=== PATIENT | female | born 1950 | race African-American/Black ===

== ENCOUNTER 2020-09-20 10:04 | Inpatient (IN) | payer OTHER, BC ==
[2020-09-20 10:54] LABS: Absolute Lymphocytes (CBC) 3.5 K/uL (0.7-4.9); Basophils % 1.3 % (0-1.3); Hematocrit 42.9 % (36.0-45.0); Lymphocytes % 41.6 % (15.3-44.8); MPV 7.5 fL (7.6-11.3); RBC Red Blood Cell Count 4.89 M/uL (3.86-4.86)
--- NOTE | 2020-09-20 11:07 | RAD REPORT ---
EXAM DESCRIPTION: RAD - Chest Single View - 09/20/2020 10:33 am CLINICAL HISTORY: CHEST PAIN COMPARISON: None TECHNIQUE: AP portable chest image was obtained 09/20/2020 10:33 am . FINDINGS: Lungs are clear. Heart and vasculature are normal. No measurable pleural effusion and no p neumothorax. No acute bony abnormality seen. No acute aortic findings suspected. IMPRESSION: No acute cardiopulmonary process.
[2020-09-20 11:10] LABS: Protime INR 1.09
[2020-09-20 11:36] LABS: ALT/SGPT 22 U/L (12-78); AST/SGOT 16 U/L (15-37); Albumin 3.7 g/dL (3.4-5.0); Alkaline Phosphatase 72 U/L (45-117); BUN Blood Urea Nitrogen 13 mg/dL (7-18); Bicarbonate 26 mmol/L (21-32); Bilirubin Direct < 0.1 mg/dL (0-0.2); Bilirubin Total 0.3 mg/dL (0.2-1.0); Glucose Level 108 mg/dL (74-106); Magnesium 2.3 mg/dL (1.8-2.4); NT PRO-BNP 137 pg/mL (<125); Potassium 3.4 mmol/L (3.5-5.1); Protein, Total 8.1 g/dL (6.4-8.2); Sodium Level 140 mmol/L (136-145); Troponin (Emerg Dept Use Only) < 0.02 ng/mL (0.0-0.045)
[2020-09-20 11:36] LABS: Urine Blood Trace-lysed (Negative); Urine Glucose Negative (Negative); Urine Protein Negative (Negative); Urine Specific Gravity 1.015 (1.005-1.030); Urine pH 5.5 (5.0-7.0)
--- NOTE | 2020-09-20 12:07 | ER ---
Nurse's Notes [facility] Name: Janell Gongora Age: 69 yrs Sex: Female : 1950 Arrival Date: 09/20/2020 Time: 10:08 Bed 17 Private MD: Diagnosis: Chest pain, unspecified Presentation: 09/20 10:24 Chief complaint: Patient states: Chest pain radiating to L shoulder, neck and back x 2 ca1 days. CP worse last night and hurts to breathe. Reports feeling lightheaded. Denies cough. Coronavirus screen: Client denies travel out of the [place] in the last 14 days. At this time, the client does not indicate any symptoms associated with coronavirus-19. Ebola Screen: Patient negative for fever greater than or equal to 101.5 degrees Fahrenheit, and additional compatible Ebola Virus Disease symptoms Patient denies exposure to infectious person. Patient denies travel to an Ebola-affected area in the 21 days before illness onset. No symptoms or risks identified at this time. Initial Sepsis Screen: Does the patient meet any 2 criteria? No. Patient's initial sepsis screen is negative. Does the patient have a suspected source of infection? No. Patient's initial sepsis screen is negative. Risk Assessment: Do you want to hurt yourself or someone else? Patient reports no desire to harm self or others. Onset of symptoms was September 20, 2020. 10:24 Acuity: SELAM 2 ca1 10:24 Method Of Arrival: Wheelchair ca1 Triage Assessment: 11:22 General: Appears in no apparent distress. Behavior is cooperative, appropriate for age, kg anxious, quiet. Pain: Complains of pain in chest Pain radiates to scalp and back Pain currently is 9 out of 10 on a pain scale. at worst was 10 out of 10 on a pain scale. level that patient reports is acceptable is 2 out of 10 on a pain scale. Quality of pain is described as aching, sharp. EENT: No deficits noted. Neuro: No deficits noted. Cardiovascular: Reports chest pain, Heart tones S1 S2 Capillary refill < 3 seconds Pulses are 3+ in right radial artery and left radial artery Rhythm is regular Chest pain is denied. Respiratory: No deficits noted. Breath sounds are clear bilaterally. GI: No deficits noted. : No deficits noted. Derm: No deficits noted. Musculoskeletal: No deficits noted. Historical: - Allergies: 10:26 No Known Allergies; ca1 - Home Meds: 10:26 losartan oral [Active]; sertraline oral [Active]; ca1 - PMHx: 10:26 Hypertensive disorder; Dementia; ca1 - Immunization history:: Adult Immunizations not up to date, Client reports having NOT received the Covid vaccine. Pneumococcal vaccine is not up to date, Flu vaccine is not up to date. - Social history:: Smoking status: Patient denies any tobacco usage or history of. Screenin:22 Abuse screen: Denies threats or abuse. Denies injuries from another. Nutritional kg screening: No deficits noted. Tuberculosis screening: No symptoms or risk factors identified. Fall Risk No fall in past 12 months (0 pts). No secondary diagnosis (0 pts). IV access (20 points). Ambulatory Aid- None/Bed Rest/Nurse Assist (0 pts). Gait- Weak (10 pts.). Mental Status- Overestimates/Forgets Limitations (15 pts.). Total Fenton Fall Scale indicates Low Risk Score (25-44 pts). Fall prevention measures have been instituted. Side Rails Up X 2 Placed close to Nursing Station Frequent Obs/Assesments occuring Family Present and informed to notify staff if they need to leave bedside As available Patient and Family Educated on Fall Prevention Program and strategies. Assessment: 11:24 Pain: Pain began 2-3 days ago. kg Vital Signs: 10:13 BP 167 / 85; Pulse 68; Resp 20; Pulse Ox 100% on R/A; kg 10:24 BP 133 / 107; Pulse 65; Resp 18 S; Temp 97.1(TE); Pulse Ox 100% on R/A; Weight 49.9 kg ca1 (R); Height 5 ft. 3 in. (160.02 cm) (R); Pain 9/10; 10:30 BP 143 / 67; Pulse 55; Resp 20; Pulse Ox 100% on R/A; kg 10:45 BP 146 / 63; Pulse 55; Resp 20; Pulse Ox 100% on R/A; kg 14:00 BP 125 / 58; Pulse 58; Resp 20; Pulse Ox 100% on R/A; kg 15:30 BP 116 / 55; Pulse 61; Resp 20; Pulse Ox 100% ; kg 16:30 BP 118 / 99; Pulse 61; Resp 18; Pulse Ox 100% ; kg 17:30 BP 145 / 56; Pulse 100; Resp 18; Pulse Ox 99% on R/A; kg 18:30 BP 138 / 54; Pulse 69; Resp 20; Pulse Ox 98% on R/A; kg 10:24 Body Mass Index 19.49 (49.90 kg, 160.02 cm) ca1 ED Course: 10:07 Inserted saline lock: 22 gauge in right antecubital area, using aseptic technique. kg 10:08 Patient arrived in ED. mr 10:15 Katia Parrish FNP-C is PHCP. kb 10:15 Gilbert Heath MD is Attending Physician. kb 10:16 Patient has correct armband on for positive identification. Placed in gown. Bed in low mh5 position. Call light in reach. Side rails up X 1. Adult w/ patient. Warm blanket given. set up mechanic on. Pulse ox on. NIBP on. 10:17 Initial lab(s) drawn, by ED staff, sent to lab. EKG done, by ED staff, reviewed by Roberto BARRETT. 10:26 Triage completed. ca1 10:26 Arm band placed on. EKG completed in triage. Results shown to MD. ca1 10:33 XRAY Chest (1 view) In Process Unspecified. EDMS 11:21 Vivienne Quinteros, RN is Primary Nurse. kg 11:24 Patient maintains SpO2 saturation greater than 95% on room air. kg 12:06 Lexi Ledesma MD is Hospitalizing Provider. kb 19:33 Report given to Eli ESCOBAR. kg 19:34 No provider procedures requiring assistance completed. Converted IV to saline lock on kg right antecubital area. Administered Medications: 12:49 Drug: Aspirin Chewable Tablet 324 mg Route: PO; kg 19:37 Follow up: Response: No adverse reaction kg Outcome: 12:07 Decision to Hospitalize by Provider. kb 19:34 Admitted to Med/surg accompanied by tech, via wheelchair, room 231, Report called to jhon Benitez RN 19:34 Condition: good 19:34 Instructed on the need for admit. 20:10 Patient left the ED. kg Signatures: Dispatcher [employer] EDMS Katia Parrish FNP-C FNP-Liat Ric [facility] Kimberlee Chaney, RN RN ca1 Vivienne Quinteros, RN RN kg
--- NOTE | 2020-09-20 12:07 | EDPHYS ---
Physician Documentation [facility] Name: Janell Gongora Age: 69 yrs Sex: Female : 1950 Arrival Date: 09/20/2020 Time: 10:08 Bed 17 Private MD: CRISTHIAN Physician Gilbert Heath HPI: 09/20 12:08 This 69 yrs old Black Female presents to ER via Wheelchair with complaints of Chest kb Pain. 12:08 The patient or guardian reports chest pain that is located primarily in the anterior kb chest wall, left. Onset: yesterday. The pain radiates to the left shoulder, left back. Associated signs and symptoms: The patient has no apparent associated signs or symptoms. The chest pain is described as aching. Duration: The patient or guardian reports a single episode, that is still ongoing. Modifying factors: The symptoms are alleviated by nothing. the symptoms are aggravated by nothing. Severity of pain: At its worst the pain was mild in the emergency department the pain is unchanged. The patient has not experienced similar symptoms in the past. The patient has not recently seen a physician. Historical: - Allergies: 10:26 No Known Allergies; ca1 - Home Meds: 10:26 losartan oral [Active]; sertraline oral [Active]; ca1 - PMHx: 10:26 Hypertensive disorder; Dementia; ca1 - Immunization history:: Adult Immunizations not up to date, Client reports having NOT received the Covid vaccine. Pneumococcal vaccine is not up to date, Flu vaccine is not up to date. - Social history:: Smoking status: Patient denies any tobacco usage or history of. ROS: 12:07 Constitutional: Negative for fever, chills, and weight loss. kb 12:07 Cardiovascular: Positive for chest pain, Negative for edema, orthopnea, palpitations, paroxysmal nocturnal dyspnea. 12:07 All other systems are negative. Exam: 10:47 Constitutional: This is a well developed, well nourished patient who is awake, alert, kb and in no acute distress. Head/Face: Normocephalic, atraumatic. ENT: Moist Mucous membranes Cardiovascular: Regular rate and rhythm with a normal S1 and S2. No gallops, murmurs, or rubs. No pulse deficits. Respiratory: Respirations even and unlabored. No increased work of breathing, no retractions or nasal flaring. Abdomen/GI: Soft, non-tender. No distention Skin: Warm, dry with normal turgor. Normal color. MS/ Extremity: Pulses equal, no cyanosis. Neurovascular intact. Full, normal range of motion. Neuro: Awake and alert, GCS 15, oriented to person, place, time, and situation. Moves all extremities. Normal gait. Psych: Awake, alert, with orientation to person, place and time. Behavior, mood, and affect are within normal limits. 10:47 ECG was reviewed by the Attending Physician. Vital Signs: 10:13 BP 167 / 85; Pulse 68; Resp 20; Pulse Ox 100% on R/A; kg 10:24 BP 133 / 107; Pulse 65; Resp 18 S; Temp 97.1(TE); Pulse Ox 100% on R/A; Weight 49.9 kg ca1 (R); Height 5 ft. 3 in. (160.02 cm) (R); Pain 9/10; 10:30 BP 143 / 67; Pulse 55; Resp 20; Pulse Ox 100% on R/A; kg 10:45 BP 146 / 63; Pulse 55; Resp 20; Pulse Ox 100% on R/A; kg 14:00 BP 125 / 58; Pulse 58; Resp 20; Pulse Ox 100% on R/A; kg 15:30 BP 116 / 55; Pulse 61; Resp 20; Pulse Ox 100% ; kg 16:30 BP 118 / 99; Pulse 61; Resp 18; Pulse Ox 100% ; kg 17:30 BP 145 / 56; Pulse 100; Resp 18; Pulse Ox 99% on R/A; kg 18:30 BP 138 / 54; Pulse 69; Resp 20; Pulse Ox 98% on R/A; kg 10:24 Body Mass Index 19.49 (49.90 kg, 160.02 cm) ca1 MDM: 10:15 Patient medically screened. kb 12:03 Data reviewed: vital signs, nurses notes. Data interpreted: Pulse oximetry: on room air kb is 100 %. Interpretation: normal. Counseling: I had a detailed discussion with the patient and/or guardian regarding: the historical points, exam findings, and any diagnostic results supporting the discharge/admit diagnosis, lab results, radiology results, the need for further work-up and treatment in the hospital. 12:07 Physician consultation: Lexi Ledesma MD was contacted at 12:07, regarding admission, kb to the telemetry unit. patient's condition, and will see patient shortly. 09/20 10:15 Order name: Basic Metabolic Panel; Complete Time: 11:48 kb 09/20 10:15 Order name: CBC with Diff; Complete Time: 11:28 kb 09/20 10:15 Order name: LFT's; Complete Time: 11:48 kb 09/20 10:15 Order name: Magnesium; Complete Time: 11:48 kb 09/20 10:15 Order name: NT PRO-BNP; Complete Time: 11:48 kb 09/20 10:15 Order name: PT-INR; Complete Time: 11:30 kb 09/20 10:15 Order name: Troponin (emerg Dept Use Only); Complete Time: 11:48 kb 09/20 11:36 Order name: Urine Dipstick-Ancillary EDNY 09/20 14:48 Order name: Lipid Profile EDNY 09/20 14:48 Order name: Lipid Profile EDNY 09/20 14:48 Order name: Troponin I EDNY 09/20 14:48 Order name: Troponin I; Complete Time: 17:44 EDNY 09/20 14:48 Order name: Troponin I EDNY 09/20 10:15 Order name: XRAY Chest (1 view); Complete Time: 11:23 kb 09/20 10:15 Order name: EKG; Complete Time: 10:16 kb 09/20 10:15 Order name: Cardiac monitoring; Complete Time: 10:16 kb 09/20 10:15 Order name: EKG - Nurse/Tech; Complete Time: 10:16 kb 09/20 10:15 Order name: IV Saline Lock; Complete Time: 10:16 kb 09/20 10:15 Order name: Labs collected and sent; Complete Time: 11:27 kb 09/20 10:15 Order name: O2 Per Protocol; Complete Time: 11:27 kb 09/20 10:15 Order name: O2 Sat Monitoring; Complete Time: 11:27 kb 09/20 14:48 Order name: CONS Physician Consult EDNY 09/20 14:48 Order name: Echo with Doppler EDNY 09/20 14:48 Order name: Echo with Doppler EDNY 09/20 15:25 Order name: SARS-COV-2 RT PCR; Complete Time: 15:27 EDMS EC:47 Rate is 65 beats/min. Rhythm is regular. QRS [place] is Normal. NE interval is normal at kb 136 msec. QRS interval is normal at 120 msec. QT interval is normal at 478 msec. Administered Medications: 12:49 Drug: Aspirin Chewable Tablet 324 mg Route: PO; kg 19:37 Follow up: Response: No adverse reaction kg Disposition: 09/21 13:22 Co-signature as Attending Physician, Gilbert Heath MD I agree with the assessment and [facility] plan of care. Disposition Summary: 09/20/20 12:07 Hospitalization Ordered Hospitalization Status: Observation kb Provider: Lexi Ledesma Location: Telemetry/MedSurg (observation) kb Condition: Stable kb Problem: new kb Symptoms: are unchanged kb Bed/Room Type: Standard Room Assignment: 231(09/20/20 16:53) Diagnosis - Chest pain, unspecified kb Forms: - Medication Reconciliation Form kb - SBAR form kb Signatures: Dispatcher [employer] EDKatia Whitfield FNP-C FNP-Gilbert Dhillon MD MD cha Botello, Elizabeth eb Acob, Cheryl, RN RN [facility] Vivienne Quinteros RN RN kg Corrections: (The following items were deleted from the chart) 09/20 14:33 13:37 CORONAVIRUS+MR.LAB.BRZ ordered. EDNY EDNY 16:53 12:07 [facility]
[2020-09-20] MEDS ORDERED: ASPIRIN 81 MG CHEWABLE TABLET ONE (13:00)
[2020-09-20] MEDS ORDERED: ACETAMINOPHEN 500 MG TAB PO PRN (14:45)
[2020-09-20] MEDS ORDERED: MORPHINE 4 MG/ML SYR IV PRN (14:45)
[2020-09-20] MEDS ORDERED: ALPRAZOLAM 0.25 MG TABLET PO PRN (14:45)
[2020-09-20] MEDS ORDERED: METOPROLOL TAR 50 MG TAB PO SCH (18:00)
[2020-09-21 00:04] VITALS: BMI 21.4
--- NOTE | 2020-09-21 00:35 | P.HP ---
Certification for Inpatient Patient admitted to: Observation With expected LOS: <2 Midnights Patient will require the following post-hospital care: None Practitioner: I am a practitioner with admitting privileges, knowledge of patient current condition, hospital course, and medical plan of care. Services: Services provided to patient in accordance with Admission requirements found in Title 42 Section 412.3 of the Code of Federal Regulations Patient History Date of Service: 09/20/20 Reason for admission: Chest pain rule out acute coronary syndrome History of Present Illness: Patient is a 69-year-old female who came to the hospital with chest discomfort. Pain was mainly in the anterior region and 1 to the left shoulder and left back. Patient's pain is dull and not sharp. Patient is also a little lightheaded. She came to the emergency room for further evaluation. In the emergency room her EKGs and troponins have been negative. Patient has a history of dementia and her short-term memory is not that great. At this time, she will be admitted to the hospital for further evaluation. Allergies No Known Allergies Allergy (Verified 09/20/20 21:35) - Past Medical/Surgical History Diabetic: No -: HTN -: DEMENTIA Past Surgical History: Patient denies surgical history - Family History Father Family History: Reviewed- Non-Contributory - Social History Smoking Status: Never smoker Alcohol use: No CD- Drugs: No Caffeine use: Yes Place of Residence: Home Review of Systems 10-point ROS is otherwise unremarkable Physical Examination - Vital Signs Temperature: 97.5 F Blood Pressure: 113/62 Pulse: 63 Respirations: 18 Pulse Ox (%): 100 - Physical Exam General: Alert, In no apparent distress, Oriented x2, Demented HEENT: Atraumatic, PERRLA, Mucous membr. moist/pink, EOMI, Sclerae nonicteric Neck: Supple, 2+ carotid pulse no bruit, No LAD, Without JVD or thyroid abnormality Respiratory: Clear to auscultation bilaterally, Normal air movement Cardiovascular: Regular rate/rhythm, Normal S1 S2, Systolic murmur Gastrointestinal: Normal bowel sounds, Soft and benign, Non-distended, No tenderness Musculoskeletal: No clubbing, No swelling, No tenderness Integumentary: No rashes Neurological: Normal gait, Normal speech, Normal strength at 5/5 x4 extr, Normal tone, Sensation intact, Cranial nerves 3-12 intact, Normal affect Lymphatics: No axilla or inguinal lymphadenopathy - Studies Laboratory Data (last 24 hrs) 09/20/20 10:46: PT 12.5, INR 1.09 09/20/20 10:46: WBC 8.50, Hgb 14.6, Hct 42.9, Plt Count 419 H 09/20/20 10:46: Sodium 140, Potassium 3.4 L, BUN 13, Creatinine 0.91, Glucose 108 H, Magnesium 2.3, Total Bilirubin 0.3, AST 16, ALT 22, Alkaline Phosphatase 72 Assessment & Plan - Problems (Diagnosis) (1) Chest pain, rule out acute myocardial infarction Current Visit: Yes Status: Acute (2) History of hypertension Current Visit: Yes Status: Acute (3) History of dementia Current Visit: Yes Status: Acute - Plan 1. Serial troponins and EKG 2. Cardiology consultation 3. Echocardiogram and stress test will probably need to get done as an outpatient. 4. Anti-platelet therapy, anti coagulation, beta-heather, statin, and O2 as needed 5. IV morphine for pain 6. Nitro p.r.n. 7. Strict blood pressure control 8. GI and DVT prophylaxis Discharge Plan: Home Plan to discharge in: 24 Hours - Advance Directives Does patient have a Living Will: No Does patient have a Durable POA for Healthcare: No - Code Status/Comfort Care Code Status Assessed: Yes Code Status: Full Code Critical Care: No Time Spent Managing PTS Care (In Minutes): 45
--- NOTE | 2020-09-21 07:13 | P.DS ---
Admission Date: 09/20/20 Discharge Date: 09/21/20 Primary Care Provider: unknown Disposition: ROUTINE DISCHARGE Discharge Condition: GOOD Reason for Admission: Chest pain rule out acute coronary syndrome Consultations: Cardiology-Dr. Mcconnell Procedures: COVID: Negative CXR: COMPARISON: None TECHNIQUE: AP portable chest image was obtained 09/20/2020 10:33 am . FINDINGS: Lungs are clear. Heart and vasculature are normal. No measurable pleural effusion and no pneumothorax. No acute bony abnormality seen. No acute aortic findings suspected. IMPRESSION: No acute cardiopulmonary process. Medical Problem List: Chest pain, atypical Hypertension Dementia Brief History of Present Illness: 69-year-old -[place] female presented with chest pain. Pain was mainly in the anterior region and 1 to the left shoulder and left back. Patient's pain is dull and not sharp. Patient is also a little lightheaded. She came to the emergency room for further evaluation. In the emergency room her EKGs and troponins have been negative. Patient has a history of dementia and her short- term memory is not that great. Patient admitted for further evaluation and treatment. Hospital Course: Patient presented with chest pain. Patient with history of hypertension and dementia. EKG shows no significant EKG changes. Troponin unremarkable. Cardiology recommends outpatient cardiac stress test. At discharge patient may continue with aspirin 81 mg daily, metoprolol 25 mg 1 pill twice daily. Recommend to maintain blood pressure less than 130/80. Further adjustment may be required. This can be done with the help of her PCP. Recommend follow-up with cardiology in 1 to 2 weeks to follow-up hospitalization. Patient may have outpatient cardiac stress test and echocardiogram to further evaluate. No need for further intervention at this time. Vital Signs/Physical Exam: Temp Pulse Resp BP Pulse Ox 97.6 F 68 18 115/56 L 100 09/21/20 04:00 09/21/20 04:00 09/21/20 04:00 09/21/20 04:00 09/21/20 04:00 General: Alert, In no apparent distress, Oriented x3, Cooperative HEENT: Atraumatic Neck: Supple Respiratory: Clear to auscultation bilaterally, Normal air movement Cardiovascular: Normal pulses, Regular rate/rhythm Gastrointestinal: Normal bowel sounds, No tenderness, No masses, No rebound, No guarding Musculoskeletal: No erythema, No tenderness, No warmth Integumentary: No tenderness/swelling Neurological: Normal speech, Normal strength at 5/5 x4 extr, Normal tone, Normal affect Laboratory Data at Discharge: WBC 8.50 K/uL (4.3-10.9) 09/20/20 10:46 Hgb 14.6 g/dL (12.0-15.0) 09/20/20 10:46 Hct 42.9 % (36.0-45.0) 09/20/20 10:46 Plt Count 419 K/uL (152-406) H 09/20/20 10:46 PT 12.5 SECONDS (9.5-12.5) 09/20/20 10:46 INR 1.09 09/20/20 10:46 Sodium 140 mmol/L (136-145) 09/20/20 10:46 Potassium 3.4 mmol/L (3.5-5.1) L 09/20/20 10:46 BUN 13 mg/dL (7-18) 09/20/20 10:46 Creatinine 0.91 mg/dL (0.55-1.3) 09/20/20 10:46 Glucose 108 mg/dL (74-106) H 09/20/20 10:46 Magnesium 2.3 mg/dL (1.8-2.4) 09/20/20 10:46 Total Bilirubin 0.3 mg/dL (0.2-1.0) 09/20/20 10:46 AST 16 U/L (15-37) 09/20/20 10:46 ALT 22 U/L (12-78) 09/20/20 10:46 Alkaline Phosphatase 72 U/L (45-117) 09/20/20 10:46 Troponin I < 0.02 ng/mL (0.0-0.045) 09/20/20 20:26 Home Medications: Aspirin [Aspirin EC 81 MG] 81 mg PO DAILY #90 tablet. 09/21/20 Metoprolol Tartrate [Lopressor*] 25 mg PO BID 6AM 6PM #60 tab 09/21/20 New Medications: Aspirin [Aspirin EC 81 MG] 81 mg PO DAILY #90 tablet. Metoprolol Tartrate [Lopressor*] 25 mg PO BID 6AM 6PM #60 tab Physician Discharge Instructions: Patient presented with chest pain. Patient with history of hypertension and dementia. EKG shows no significant EKG changes. Troponin unremarkable. Cardiology recommends outpatient cardiac stress test. At discharge patient may continue with aspirin 81 mg daily, metoprolol 25 mg 1 pill twice daily. Recommend to maintain blood pressure less than 130/80. Further adjustment may be required. This can be done with the help of her PCP. Recommend follow-up with cardiology in 1 to 2 weeks to follow-up hospitalization. Patient may have outpatient cardiac stress test and echocardiogram to further evaluate. No need for further intervention at this time. Diet: AHA Activity: Ad susan Followup: NONE,NONE [Primary Care Provider] - Time spent managing pt's care (in minutes): 55
[2020-09-21 08:09] LABS: BUN Blood Urea Nitrogen 13 mg/dL (7-18); Bicarbonate 30 mmol/L (21-32); Folic Acid, (Folate) 5.5 ng/mL (3.1-17.5); Glucose Level 96 mg/dL (74-106); HDL Cholesterol 50 mg/dL (40-60); LDL Cholesterol, Calculated 93 (<130); Magnesium 2.2 mg/dL (1.8-2.4); Potassium 3.2 mmol/L (3.5-5.1); Sodium Level 142 mmol/L (136-145); Troponin I < 0.02 ng/mL (0.0-0.045)
[2020-09-21] MEDS: ENOXAPARIN 40 MG/0.4 ML SQ SCH (09:51)
[2020-09-21] MEDS: ASPIRIN EC 81 MG TAB PO SCH (09:51)
[2020-09-21] MEDS: METOPROLOL TAR 25 MG TAB PO SCH ×2 (09:52→18:00)
--- NOTE | 2020-09-21 11:02 | P.PN ---
Subjective Date of Service: 09/21/20 Primary Care Provider: unknown Chief Complaint: Chest pain rule out acute coronary syndrome Subjective: Improving, Doing well Physical Examination - Vital Signs Temperature: 97.4 F Blood Pressure: 109/57 Pulse: 63 Respirations: 18 Pulse Ox (%): 100 - Studies Laboratory Data (last 24 hrs) 09/20/20 10:46: PT 12.5, INR 1.09 09/20/20 10:46: WBC 8.50, Hgb 14.6, Hct 42.9, Plt Count 419 H 09/20/20 10:46: Sodium 140, Potassium 3.4 L, BUN 13, Creatinine 0.91, Glucose 108 H, Magnesium 2.3, Total Bilirubin 0.3, AST 16, ALT 22, Alkaline Phosphatase 72 Assessment & Plan Discharge Plan: Home Plan to discharge in: 24 Hours Physician Review Additional Text: COVID: Negative CXR: COMPARISON: None TECHNIQUE: AP portable chest image was obtained 09/20/2020 10:33 am . FINDINGS: Lungs are clear. Heart and vasculature are normal. No measurable pleural effusion and no pneumothorax. No acute bony abnormality seen. No acute aortic findings suspected. IMPRESSION: No acute cardiopulmonary process. Vital Signs/Physical Exam: Temp Pulse Resp BP Pulse Ox 97.6 F 68 18 115/56 L 100 09/21/20 04:00 09/21/20 04:00 09/21/20 04:00 09/21/20 04:00 09/21/20 04:00 General: Alert, In no apparent distress, Oriented x3, Cooperative HEENT: Atraumatic Neck: Supple Respiratory: Clear to auscultation bilaterally, Normal air movement Cardiovascular: Normal pulses, Regular rate/rhythm Gastrointestinal: Normal bowel sounds, No tenderness, No masses, No rebound, No guarding Musculoskeletal: No erythema, No tenderness, No warmth Integumentary: No tenderness/swelling Neurological: Normal speech, Normal strength at 5/5 x4 extr, Normal tone, Normal affect Impression: Chest pain, atypical Hypertension Dementia Depression Plan: Chest pain, atypical: Patient seen and evaluated by cardiology. Cardiology recommends inpatient cardiac stress test and echocardiogram to further evaluate. This will be done tomorrow. If unremarkable can be discharged home. Continue with blood pressure medicationmetoprolol, aspirin and Lipitor. DVT prophylaxisLovenox. We will continue to monitor closely. Hypertension: Obtain and verify home medication. Continue with metoprolol for now. Losartan currently on hold. Dementia: Overall stable. Monitor closely. Continue Aricept 10 mg daily. Depression: Continue with medication Zoloft 50 mg daily CODE STATUS: Full code DVT prophylaxis: Arnoldox Advanced care [id number] minutes: Patient wishes to go home at discharge. Time Spent Managing Pts Care (In Minutes): 55
--- NOTE | 2020-09-21 13:32 | CON ---
Date of Consultation: 09/21/2020 The patient was admitted on 09/20/[address] Weiner' service. Reason For Consultation: Chest pain. History Of Present Illness: Ms. Gongora is a 69-year-old woman with a history of hypertension and de mentia, who came in with 2 days of anterior chest pain, sharp, stabbing, nonradiating, nonexertional, not related to food, time of the day or body position. Denies any nausea, vomiting, diaphoresis, PN D, orthopnea, pedal edema, palpitations, or syncope. She denied any fever, chills, or cough. By the time I saw her, her only positive workup was a potassium of 3.2. Her EKG, chest x-ray were normal. She was pain free when I saw her. Past Medical History: Includes hypertension and dementia. Allergies: NONE. Review of Systems: Negative. Social History: Negative for tobacco, drug use, or alcohol. Family History: Negative. Medications: At home include Aricept, losartan, and Zoloft. Physical Examination: General: Very pleasant lady. No acute distress. Vital Signs: Stable. Afebrile. HEENT: Negative. Neck: Supple. No bruit, lymphadenopathy, JVD, or thyromegaly. Chest: Clear to auscultation and percussion. Cardiac: Revealed a regular rhythm and rate with an S4 gallop. No murmurs or rubs. Abdomen: Benign. Extremities: Revealed no clubbing, cyanosis, or edema. Diagnostic Data: Normal except for a potassium 3.2. Chest x-ray and EKG were normal. Troponin was negative. Impression And Plan: Atypical chest pain in a patient with a history of hypertension and dementia. She is 69 years of age. She is at risk for heart disease. I recommend an echocardiogram and a Eloisa can before she goes home. Potassium needs to be corrected. Her blood pressure is well controlled. Her dementia is well controlled. Continue present regimen. DEMETRA/JOAQUIML Voice ID: [id number] Report ID: [id number]
[2020-09-21] MEDS ORDERED: DONEPEZIL HCL 5 MG TAB PO SCH (21:00)
[2020-09-21] MEDS ORDERED: ATORVASTATIN 10 MG TAB PO SCH (21:00)
[2020-09-21] MEDS ORDERED: ENSURE ENLIVE 237 ML CAN PO SCH (21:00)
--- NOTE | 2020-09-22 06:07 | P.DS ---
Admission Date: 09/21/20 Discharge Date: 09/22/20 Primary Care Provider: unknown Disposition: ROUTINE DISCHARGE Discharge Condition: GOOD Reason for Admission: Chest pain rule out acute coronary syndrome Consultations: Cardiology-Dr. Mcconnell Procedures: COVID: Negative Stress test: FINDINGS: The end diastolic volume is 37 ml, the end systolic volume is 7 ml, and the ejection fraction is 80 %. Physiologic distribution of the radiopharmaceutical through the myocardium is noted. No stress induced ischemic defect is seen to suggest stress induced ischemia. No fixed defect is seen to suggest hibernating myocardium or scarred myocardium. IMPRESSION: No stress induced ischemia or other suspicious findings. Ventricular volumes and ejection fraction are normal range. CXR: COMPARISON: None TECHNIQUE: AP portable chest image was obtained 09/20/2020 10:33 am . FINDINGS: Lungs are clear. Heart and vasculature are normal. No measurable pleural effusion and no pneumothorax. No acute bony abnormality seen. No acute aortic findings suspected. IMPRESSION: No acute cardiopulmonary process. Medical Problem List: Chest pain, atypical Hypertension Dementia Depression Brief History of Present Illness: Patient is a 69-year-old female who came to the hospital with chest discomfort. Pain was mainly in the anterior region and 1 to the left shoulder and left back. Patient's pain is dull and not sharp. Patient is also a little lightheaded. She came to the emergency room for further evaluation. In the emergency room her EKGs and troponins have been negative. Patient has a history of dementia and her short-term memory is not that great. At this time, she will be admitted to the hospital for further evaluation. Hospital Course: Patient presented with atypical chest pain. Patient seen and evaluated by cardiology. Cardiology recommended inpatient cardiac stress test to further evaluate. Cardiac stress test performed. It showed no stress induced ischemia. No further intervention required. At discharge patient will continue with metoprolol 12.5 mg 1 pill twice daily and aspirin 81 mg daily. Recommend follow-up with cardiology in 2 to 4 weeks to follow-up hospitalization. Recommend follow-up with PCP in 1 week to follow-up hospitalization. Patient with hypertension. Medications have been adjusted for better control. Losartan was discontinued. Patient was placed on metoprolol. Metoprolol adjusted with better control. At discharge she will no longer take losartan. She will continue with metoprolol 12.5 mg 1 pill twice daily. Recommend to monitor blood sugar daily. Recommend to hold medication if blood pressure systolic less than 110 or heart rate less than 60. Recommend to maintain blood pressure less than 130/80. Further adjustment can be done by her PCP. Recommend follow-up with PCP to further monitor and adjust medication. Patient with underlying dementia. This appears stable. At discharge will continue with Aricept 10 mg daily. Patient with depression. At discharge she will continue with Zoloft 50 mg daily. Vital Signs/Physical Exam: Temp Pulse Resp BP Pulse Ox 97.5 F 53 16 120/61 100 09/22/20 04:00 09/22/20 04:00 09/22/20 04:00 09/22/20 04:00 09/22/20 04:00 General: Alert, In no apparent distress, Cooperative HEENT: Atraumatic Neck: Supple Respiratory: Clear to auscultation bilaterally, Normal air movement Cardiovascular: Normal pulses, Regular rate/rhythm Gastrointestinal: Normal bowel sounds, No tenderness, No masses, No rebound, No guarding Musculoskeletal: No erythema, No tenderness, No warmth Integumentary: No tenderness/swelling Neurological: Normal speech, Normal strength at 5/5 x4 extr, Normal tone, Normal affect Laboratory Data at Discharge: WBC 8.50 K/uL (4.3-10.9) 09/20/20 10:46 Hgb 14.6 g/dL (12.0-15.0) 09/20/20 10:46 Hct 42.9 % (36.0-45.0) 09/20/20 10:46 Plt Count 419 K/uL (152-406) H 09/20/20 10:46 PT 12.5 SECONDS (9.5-12.5) 09/20/20 10:46 INR 1.09 09/20/20 10:46 Sodium 142 mmol/L (136-145) 09/21/20 06:52 Potassium 3.2 mmol/L (3.5-5.1) L 09/21/20 06:52 BUN 13 mg/dL (7-18) 09/21/20 06:52 Creatinine 0.77 mg/dL (0.55-1.3) 09/21/20 06:52 Glucose 96 mg/dL (74-106) 09/21/20 06:52 Magnesium 2.2 mg/dL (1.8-2.4) 09/21/20 06:52 Total Bilirubin 0.3 mg/dL (0.2-1.0) 09/20/20 10:46 AST 16 U/L (15-37) 09/20/20 10:46 ALT 22 U/L (12-78) 09/20/20 10:46 Alkaline Phosphatase 72 U/L (45-117) 09/20/20 10:46 Troponin I < 0.02 ng/mL (0.0-0.045) 09/21/20 06:52 Triglycerides 76 mg/dL (<150) 09/21/20 06:52 Cholesterol 158 mg/dL (<200) 09/21/20 06:52 HDL Cholesterol 50 mg/dL (40-60) 09/21/20 06:52 Cholesterol/HDL Ratio 3.16 09/21/20 06:52 Home Medications: Donepezil [Aricept*] 10 mg PO BEDTIME 09/21/20 Sertraline [Zoloft*] 50 mg PO DAILY 09/21/20 Aspirin [Aspirin EC 81 MG] 81 mg PO DAILY #90 tablet. 09/22/20 Metoprolol Tartrate [Lopressor*] 12.5 mg PO BID 6AM 6PM #60 tab 09/22/20 New Medications: Aspirin [Aspirin EC 81 MG] 81 mg PO DAILY #90 tablet. Metoprolol Tartrate [Lopressor*] 12.5 mg PO BID 6AM 6PM #60 tab Physician Discharge Instructions: Patient presented with atypical chest pain. Patient seen and evaluated by cardiology. Cardiology recommended inpatient cardiac stress test to further evaluate. Cardiac stress test performed. It showed no stress induced ischemia. No further intervention required. At discharge patient will continue with metoprolol 12.5 mg 1 pill twice daily and aspirin 81 mg daily. Recommend follow-up with cardiology in 2 to 4 weeks to follow-up hospitalization. Recommend follow-up with PCP in 1 week to follow-up hospitalization. Patient with hypertension. Medications have been adjusted for better control. Losartan was discontinued. Patient was placed on metoprolol. Metoprolol adjusted with better control. At discharge she will no longer take losartan. She will continue with metoprolol 12.5 mg 1 pill twice daily. Recommend to monitor blood sugar daily. Recommend to hold medication if blood pressure systolic less than 110 or heart rate less than 60. Recommend to maintain blood pressure less than 130/80. Further adjustment can be done by her PCP. Recommend follow-up with PCP to further monitor and adjust medication. Patient with underlying dementia. This appears stable. At discharge will continue with Aricept 10 mg daily. Patient with depression. At discharge she will continue with Zoloft 50 mg da cornelio. Diet: AHA Activity: Fall precautions Followup: NONE,NONE [Primary Care Provider] - Time spent managing pt's care (in minutes): 55
[2020-09-22] MEDS: METOPROLOL TAR 25 MG TAB PO SCH (06:38)
[2020-09-22] MEDS ORDERED: SERTRALINE HCL 50 MG TAB PO SCH (09:00)
[2020-09-22] MEDS: ASPIRIN EC 81 MG TAB PO SCH (09:57)
[2020-09-22] MEDS: ENOXAPARIN 40 MG/0.4 ML SQ SCH (09:57)
[2020-09-22] MEDS ORDERED: REGADENOSON 0.4 MG/5 ML SYR IV ONE (11:00)
--- NOTE | 2020-09-22 12:06 | RAD REPORT ---
EXAM DESCRIPTION: NM - Rest Stress Cardiac Imaging - 09/22/2020 11:24 am CLINICAL HISTORY: Chest pain COMPARISON: None. TECHNIQUE: The patient was administered 9.4 mCi of Tc 99m Sestamibi prior to resting SPECT imaging o f the heart. The patient was then administered 30.7 mCi of Tc 99m Sestamibi following exercise or pha rmacologic stress. Multiplanar SPECT images were reviewed. FINDINGS: The end diastolic volume is 37 ml, the end systolic volume is 7 ml, and the ejection fract ion is 80 %. Physiologic distribution of the radiopharmaceutical through the myocardium is noted. No stress induce d ischemic defect is seen to suggest stress induced ischemia. No fixed defect is seen to suggest hibe rnating myocardium or scarred myocardium. IMPRESSION: No stress induced ischemia or other suspicious findings. Ventricular volumes and ejection fraction are normal range.
[2020-09-22 12:32] VITALS: TEMP 97
[2020-09-22 14:18] VITALS: O2SAT 100
[2020-09-22 14:23] VITALS: BP 103/57
--- NOTE | 2020-09-22 16:14 | EKG ---
Test Date: 2020-09-20 Test Time: 10:18:36 Manager Site: [facility] MEASUREMENT RESULTS: Intervals: Rate: 65 CA: 136 QRSD: 120 QT: 478 QTc: 497 [place]: P: CA: 136 QRS: 12 T: 11 INTERPRETIVE STATEMENTS: Normal sinus rhythm Indeterminate axis Right bundle branch block Abnormal ECG No previous ECG available for comparison Electronically Signed On 09-22-20 16:09:04 CDT by Ayad Mcconnell
[2020-09-22] MEDS ORDERED: METOPROLOL TAR 25 MG TAB PO SCH (18:00)
--- NOTE | 2020-09-23 08:15 | TREADPHA ---
DX: CHEST PAIN, HISTORY OF HYPERTENSION Date of Study: 09/22/20 Ht: 5' 4 " Wt: 125 lb 0 oz Consulting Physician: ROMÁN MEDICATIONS: TYLENOL, XANAX, ASPIRIN, LIPITOR, ARICEPT, LOVENOX, LOPRESSOR, ZOLOFT HISTORY: HYPERTENSION PHYSICIAL EXAMINATION: RESTING B.P.: 120/65 RESTING H.R.: 51 RESTING EKG: SINUS BRADYCARDIA, RIGHT BUNDLE BRANCH BLOCK PROTOCOL: LEXISCAN EXERCISE TIME: 3:30 B.P. AT [place] STRESS: 97/59 IMPRESSION: LEXISCAN STRESS TEST PERFORMED. CARDIOLITE INJECTED PER PROTOCOL. SEE NUCLEAR MEDICINE REPORT. NO SUPRA VENTRICULAR TACHYCARDIA. NO VENTRICULAR TACHYCARDIA. RARE PREMATURE VENTRICULAR COMPLEX NOTED. RESPIRATORY EVEN AND NON LABORED. PATIENT TOLERATED WELL.
--- NOTE | 2020-09-23 08:32 | ECHO ---
HEIGHT: 5 ft 4 in WEIGHT: 125 lb 0 oz DATE OF STUDY: 09/22/[address]: Lexi Ledesma MD 2-DIMENSIONAL: YES M.MODE: YES DOPPLER: YES COLOR FLOW: YES TDS: NO PORTABLE: NO DEFINITY: NO BUBBLE STUDY: NO DIAGNOSIS: CHEST PAIN RULE OUT ACUTE CORONARY SYNDROME CARDIAC HISTORY: CATHERIZATION: NO SURGERY: NO PROSTHETIC VALVE: NO PACEMAKER: NO MEASUREMENTS (cm) DIASTOLIC (NORMALS) SYSTOLIC (NORMALS) IVSd 0.9 (0.6-1.2) LA Diam 2.7 (1.9-4.0) LVEF 69% LVIDd 3.9 (3.5-5.7) LVIDs 2.4 (2.0-3.5) %FS 38% LVPWd 1.0 (0.6-1.2) Ao Diam 2.1 (2.0-3.7) 2 DIMENSIONAL ASSESSMENT: RIGHT ATRIUM: NORMAL LEFT ATRIUM: NORMAL RIGHT VENTRICLE: NORMAL LEFT VENTRICLE: NORMAL TRICUSPID VALVE: NORMAL MITRAL VALVE: NORMAL PULMONIC VALVE: NORMAL AORTIC VALVE: NORMAL PERICARDIAL EFFUSION: NONE AORTIC ROOT: NORMAL LEFT VENTRICULAR WALL MOTION: NORMAL. DOPPLER/COLOR FLOW: MILD AORTIC AND TRICUSPID REGURGITATION. COMMENTS: MILD AORTIC AND TRICUSPID REGURGITATION. NORMAL LEFT VENTRICULAR SIZE AND FUNCTION. NO WALL MOTION ABNORMALITY. NO EFFUSION. TECHNOLOGIST: DAKOTAH RODRIGUEZ
--- NOTE | 2020-09-24 06:02 | PN ---
Date of Progress Note: 09/22/2020 Ms. Gongora came in with atypical chest pain. On 09/22/2020, she underwent an echocardiogram, which was normal. She also had a Lexiscan, which was normal. She had no further chest pain reported. Her pain has been sharp. Today, her vital signs are stable. She is symptoms free. I am comfortable wi th her going home whenever it is okay with Dr. Weiner. She does have a history of hypertension that is fairly well controlled. She has some mild dementia that is controlled on Aricept. I will see her in the office if her symptoms persist. DEMETRA/HANNA Voice ID: [id number] Report ID: [id number]
== END 2020-09-22 15:00 | disposition home or self-care (01) | DRG 313 ==
LOC: ER 10:04 → ERHOLD 14:46 → 2ND 19:28 → OBSVTOIN 09-21 14:36
PROVIDERS: ADMIT Hospitalist; ATTEND Hospitalist
DX: R07.89 Other chest pain (principal); I10 Essential (primary) hypertension; F03.90 Unspecified dementia, unspecified severity, without behavioral disturbance, psychotic disturbance, mood disturbance, and anxiety; F32.9 Major depressive disorder, single episode, unspecified; Z20.822 Contact with and (suspected) exposure to COVID-19
CPT/HCPCS: 36415; 71045; 78452; 80048; 80061; 80076; 81003; 82607; 82746; 83735; 83880; 84484; 85025; 85610; 93005; 93017; 93306; 99285; A9500; G0378; J1650; J2785; U0003